=== PATIENT | female | born 1995 | race Two or more races ===

== ENCOUNTER → 2017-01-10 | Outpatient (CLI) | payer OTHER ==
[~2017-01-10] MED LIST: IOPAMIDOL (ISOVUE 370) 100 ML BTL IV ONE; LIDOCAINE 1% 300 MG/30 ML SDV ONE
== END ==
LOC: FIMAGING 10:30
PROVIDERS: ATTEND Family Medicine Sports Medicine
PROC: BQ1X1ZZ Fluoroscopy of Right Foot/Toe Joint using Low Osmolar Contrast (ICD-10-PCS; principal; 2017-01-10)
DX: S93.521A Sprain of metatarsophalangeal joint of right great toe, initial encounter (principal); M79.674 Pain in right toe(s)
CPT/HCPCS: Q9967